=== PATIENT | female | born 1970 | race Two or more races ===

== ENCOUNTER 2018-08-17 11:14 | Emergency (ER) | payer OTHER, SELFPAY ==
[~2018-08-17] VITALS: Ht 157.5 cm; Wt 66.0 kg
[2018-08-17 13:02] LABS: CHLORIDE 100 mEq/L (98-107)
[2018-08-17 13:10] LABS: ETHANOL BLOOD 15 mg/dL
[2018-08-17 13:21] LABS: BASOPHILS % 0.7 % (0.0-2.0); EOSINOPHILS % 0.9 % (0.0-5.0); HEMATOCRIT. 36.9 % (36.0-48.0); HEMOGLOBIN. 11.5 g/dL (12.0-16.0); LYMPHOCYTES % 33.3 % (20.0-50.0); MEAN CORPUSCULAR HEMOGLOBIN 28.2 pg (28.0-32.0); MEAN CORPUSCULAR VOLUME 90.2 fL (81.0-99.0); MEAN PLATELET VOLUME 11.2 fl (7.4-10.4); MONOCYTES % 5.8 % (2.0-8.0); NEUTROPHILS % 59.3 % (40.0-76.0); PLATELET 135 x1000/uL (130-400); RED BLOOD CELL COUNT 4.09 mill/uL (4.2-5.4); RED CELL DISTRIBUTION WIDTH 14.5 % (11.6-14.6)
[2018-08-17 15:42] VITALS: BP 156/82
== END 2018-08-17 17:41 | disposition home or self-care (01) ==
LOC: ER 11:19
DX: F12.929 Cannabis use, unspecified with intoxication, unspecified (principal); F10.129 Alcohol abuse with intoxication, unspecified; Y90.0 Blood alcohol level of less than 20 mg/100 ml; R03.0 Elevated blood-pressure reading, without diagnosis of hypertension; E11.22 Type 2 diabetes mellitus with diabetic chronic kidney disease; N18.6 End stage renal disease; Z99.2 Dependence on renal dialysis
CPT/HCPCS: 36415; 80053; 82962; 84484; 85025; 93005; 99284; G0482